=== PATIENT | female | born 2000 | race African-American/Black ===

== ENCOUNTER 2025-03-01 09:14 | Emergency (ER) | payer OTHER ==
[~2025-03-01] VITALS: Ht 172.7 cm; Wt 72.0 kg
[2025-03-01 10:01] VITALS: TEMP 98.6
[2025-03-01 10:16] LABS: COVID AG,FIA SOURCE NASAL SWAB
[2025-03-01 10:42] LABS: RAPID GROUP A STREP NEGATIVE (NEGATIVE); SARS-COV2 (COVID) ANTIGEN,FIA Negative (Negative)
[2025-03-01 10:43] LABS: INFLUENZA TYPE A NEGATIVE FOR TYPE A (NEGATIVE); INFLUENZA TYPE B NEGATIVE FOR TYPE B (NEGATIVE)
[2025-03-01] MEDS: KETOROLAC TROMETHAMINE 30 MG/ML VIAL IM ONE (11:33)
[2025-03-01 11:45] LABS: APPEARANCE,URINE CLEAR (CLEAR); BILIRUBIN,URINE NEGATIVE (NEGATIVE); COLOR,URINE LIGHT YELLOW (YELLOW); GLUCOSE, URINE (UA) NEGATIVE (NEGATIVE); KETONES,URINE NEGATIVE (NEGATIVE); LEUKOCYTE ESTERASE ,URINE NEGATIVE (NEGATIVE); NITRATE,URINE NEGATIVE (NEGATIVE); OCCULT BLOOD,URINE NEGATIVE (NEGATIVE); PH,URINE 6.5 (5.0-8.0); PROTEIN,URINE NEGATIVE (NEGATIVE); SPECIFIC GRAVITIY, URINE 1.011 (1.003-1.030); UROBILINOGEN,URINE <=1.0 mg/dL (<=1.0)
[2025-03-01 11:47] LABS: HCG,QUAL URINE NEGATIVE (NEGATIVE)
[2025-03-01 12:15] VITALS: BP 121/72; PULSE 67; RESP 18; O2SAT 99
== END 2025-03-01 12:22 | disposition home or self-care (01) ==
LOC: EMS 09:28
DX: J02.9 Acute pharyngitis, unspecified (principal); Z20.822 Contact with and (suspected) exposure to COVID-19
CPT/HCPCS: 99283; 87426; 81003; 84703; 87430; 87804; 96372; J1885